=== PATIENT | female | born 1950 | race Caucasian/White ===

== ENCOUNTER 2023-08-29 11:50 | Emergency (ER) | payer MEDICARE, SELFPAY ==
[2023-08-29] VITALS (18 sets, daily range): BP systolic 100–136; BP diastolic 51–58; PULSE 66–99; RESP 16–36; TEMP 36.6–36.9; O2SAT 92–97; BMI 26.6
[2023-08-29 14:10] LABS: Add Manual Diff / Slide Review NO; Basophils Absolute Auto 0 /uL (0-100); Basophils Percent Auto 0.5 % (0-2); Eosinophils Absolute Auto 100 /uL (0-450); Eosinophils Percent Auto 1.1 % (2-4); Hematocrit 39.6 % (36-46); Hemoglobin 13.4 g/dL (12.0-16.0); Lymphocytes Absolute Auto 1300 /uL (1100-4500); Mean Corpuscular Hemoglobin 33.8 PG (26-34); Mean Corpuscular Volume 99.5 fL (80-100); Monocytes Absolute Auto 600 /uL (0-900); Monocytes Percent Auto 11.9 % (3-14); Neutrophils Absolute Auto 3100 /uL (1500-7000); Neutrophils Percent Auto 61.5 % (50-75); Platelet Count 224 X10^3/uL (150-400); Red Blood Cell Count 3.98 X10^6/uL (4.0-5.2); Red Cell Distribution Width 12.2 % (11.6-14.8)
[2023-08-29] MEDS: ONDANSETRON 4 MG/2 ML INJ IV (14:11)
[2023-08-29] MEDS: SODIUM CHLORIDE 0.9% 1,000 ML 1000 ML IV ×2 (14:11→17:30)
[2023-08-29 14:21] LABS: Alanine Aminotransferase 50 IU/L (<35); Albumin 4.2 g/dL (3.5-5.0); Albumin Globulin Ratio 1.2 (1.0-2.8); Alkaline Phosphatase 75 U/L (38-126); Aspartate Aminotransferase 46 IU/L (14-36); Bilirubin Total 0.7 mg/dL (0.2-1.3); Blood Urea Nitrogen 31 mg/dL (7-17); Calcium 9.3 mg/dL (8.4-10.2); Carbon Dioxide 24 mmol/L (22-32); Chloride 99 mmol/L (98-107); Estimated Glomerular Filt Rate 50 mL/min (>60); Globulin 3.4 g/dL (1.7-4.1); Glucose 85 mg/dL (80-110); HEMOLYSIS < 15 (0-50); Lipase 33 U/L (23-300); Potassium 3.3 mmol/L (3.4-5.1); Sodium 136 mmol/L (137-145); Total Protein 7.6 g/dL (6.3-8.2)
--- NOTE | 2023-08-29 17:04 | ED_ITS ---
HPI - General Adult General Chief complaint: Abdominal Pain Stated complaint: nausea, diarrhea Time Seen by Provider: 08/29/23 12:05 Source: patient Mode of arrival: Ambulatory History of Present Illness HPI narrative: 73-year-old woman with a history of reflux, hypertension and hyperlipidemia presents with continued nausea vomiting and diarrhea since 08/25. She was seen in an emergency department in [place] on 08/27. She is still having nausea and vomiting now with abdominal pain and dizziness. She does not describe fevers, no palpitations, chest pain headache Related Data Home Medications Medication Instructions Recorded Confirmed gabapentin 300 mg capsule 300 mg PO 4XD 08/29/23 08/29/23 hydrochlorothiazide 25 mg tablet 25 mg PO DAILY 08/29/23 08/29/23 losartan 50 mg tablet 50 mg PO DAILY 08/29/23 08/29/23 omeprazole 40 mg capsule,delayed 40 mg PO DAILY 08/29/23 08/29/23 release ondansetron 4 mg disintegrating 4 mg PO Q8H PRN nausea 08/29/23 08/29/23 tablet rosuvastatin 10 mg tablet 10 mg PO ONCE PM 08/29/23 08/29/23 Allergies Allergy/AdvReac Type Severity Reaction Status Date / Time amoxicillin Allergy Rash Verified 08/29/23 11:57 cefprozil Allergy Rash Verified 08/29/23 11:57 Review of Systems Review of Systems Narrative: Pertinent positive and negative findings as per HPI Patient History Social History Smoking Status: Never smoker Smoking Status: Never smoker alcohol intake frequency: a few times a month Substance Use Type: does not use Exam Initial Vital Signs Initial Vital Signs: Vital Signs Temperature 98 F 08/29/23 11:57 Pulse Rate 99 H 08/29/23 11:57 Respiratory Rate 20 08/29/23 11:57 Blood Pressure 136/57 L 08/29/23 11:57 Pulse Oximetry 97 08/29/23 11:57 Oxygen Delivery Method Room Air 08/29/23 11:57 General: Fatigued appearing appearing, in no acute distress. Able to give a complete and coherent history. HEENT: Moist mucous membranes, normal sclera with reactive pupils, Respiratory: Lungs are clear to auscultation, no wheezing no rales no rhonchi. Full and symmetrical air movement Cardiac: Regular rate and rhythm no murmurs no bruits Abdomen: Soft, hyperactive bowel tones, no rebound or guarding, diffuse abdominal pain Skin: Warm and dry, no rashes Neurologic: Grossly neurologically intact with no obvious asymmetries or abnormalities Extremities: No trauma, Psych: Cooperative, appropriate insight and affect Course Orders Ordered: ED Orders 08/29/23 14:00 Complete Blood Count AUTO DIFF Stat Comprehensive Metabolic Panel Stat Lipase Stat 08/29/23 14:23 EKG-12 Lead Stat 08/29/23 15:17 GI Panel (Film Array) Stat Ondansetron HCl (Ondansetron 4 Mg Odt) 4 mg PO NOW PRN PRN Reason: Nausea And Vomiting Ondansetron HCl (Ondansetron 4 Mg/2 Ml Inj) 4 mg IV NOW PRN PRN Reason: Nausea And Vomiting Last Admin: 08/29/23 14:11 Dose: 4 mg Documented By: TC Discontinued Medications Sodium Chloride (Normal Saline 0.9%) 1,000 mls @ 1,000 mls/hr IV BOLUS ONE Stop: 08/29/23 15:01 Last Infusion: 08/29/23 15:11 Dose: Infused Documented By: Admin: 08/29/23 14:11 Dose: 1,000 mls/hr Documented By: TC Vital Signs Vital signs: Vital Signs - 8 hr 08/29/23 11:57 08/29/23 12:53 08/29/23 13:00 Temperature 98 F Pulse Rate 99 H 86 77 Respiratory Rate 20 17 Blood Pressure 136/57 L Pulse Oximetry 97 95 93 Oxygen Delivery Method Room Air 08/29/23 13:00 08/29/23 13:30 08/29/23 14:00 Temperature Pulse Rate 76 75 Respiratory Rate 21 24 Blood Pressure 114/54 L 114/54 L Pulse Oximetry 94 96 Oxygen Delivery Method 08/29/23 14:30 08/29/23 14:44 08/29/23 14:44 Temperature Pulse Rate 72 73 Respiratory Rate 28 H 20 Blood Pressure 107/58 L Pulse Oximetry 95 97 Oxygen Delivery Method 08/29/23 15:00 08/29/23 15:00 08/29/23 15:30 Temperature Pulse Rate 73 75 Respiratory Rate 35 H 18 Blood Pressure 107/51 L Pulse Oximetry 96 96 Oxygen Delivery Method 08/29/23 16:00 Temperature Pulse Rate 74 Respiratory Rate 18 Blood Pressure 121/58 L Pulse Oximetry 94 Oxygen Delivery Method Room Air Medical Decision Making Lab Data 08/29/23 14:00 08/29/23 14:00 Labs: Lab Results 08/29/23 Range/Units 14:00 WBC 5.0 (4.5-11.0) X10^3/uL RBC 3.98 L (4.0-5.2) X10^6/uL Hgb 13.4 (12.0-16.0) g/dL Hct 39.6 (36-46) % MCV 99.5 (80-100) fL MCH 33.8 (26-34) PG MCHC 34.0 (30-36) % RDW 12.2 (11.6-14.8) % Plt Count 224 (150-400) X10^3/uL Neut % (Auto) 61.5 (50-75) % Lymph % (Auto) 25.0 (25-40) % [place] % (Auto) 11.9 (3-14) % Eos % (Auto) 1.1 L (2-4) % Baso % (Auto) 0.5 (0-2) % Neut # (Auto) 3100 (9165-5322) /uL Lymph # (Auto) 1300 (0052-6822) /uL [place] # (Auto) 600 (0-900) /uL Eos # (Auto) 100 (0-450) /uL Baso # (Auto) 0 (0-100) /uL Sodium 136 L (137-145) mmol/L Potassium 3.3 L (3.4-5.1) mmol/L Chloride 99 (98-107) mmol/L Carbon Dioxide 24 (22-32) mmol/L BUN 31 H (7-17) mg/dL Creatinine 1.15 H (0.52-1.04) mg/dL Estimated GFR 50 L (>60) mL/min BUN/Creatinine Ratio 27.0 H (6-22) Glucose 85 (80-110) mg/dL Calcium 9.3 (8.4-10.2) mg/dL Total Bilirubin 0.7 (0.2-1.3) mg/dL AST 46 H (14-36) IU/L ALT 50 H (<35) IU/L Alkaline Phosphatase 75 (38-126) U/L Total Protein 7.6 (6.3-8.2) g/dL Albumin 4.2 (3.5-5.0) g/dL Globulin 3.4 (1.7-4.1) g/dL Albumin/Globulin Ratio 1.2 (1.0-2.8) Lipase 33 (23-300) U/L MDM Narrative Medical decision making narrative: CC: 5 days of nausea vomiting now with increasing dizziness and abdominal pain Complicating co-morbidities: Hypertension, hyperlipidemia Data collected from: patient Social determinants of health that may influence the patients condition: Patient is visiting from out of town Differential considered: Viral gastroenteritis, bacterial gastroenteritis, Clostridium difficile, colitis Exam documented above, pertinent findings include: Mild diffuse abdominal pain without rebound or guarding. Patient appears fatigued with circles under her eyes but is otherwise well perfused. Lab Test results independently reviewed as above. Pertinent findings: Chemistries show potassium slightly low at 3.3, creatinine at 1.15, GFR is low at 50. She notes that her GFR is typically above 60. Elevated BUN at 31, AST and ALT are slightly elevated at 46 and 50 respectively. Patient does note that her potassium does run slightly low, she is on hydrochlorothiazide. Lipase is unremarkable CBC is reassuring Stool PCR is notable for Binh virus Imaging studies independently reviewed: CT scan shows no acute findings beyond nondilated fluid-filled loops of small bowel throughout the abdomen and pelvis is suspicious for a nonspecific enteritis or enterocolitis. Treatments: Zofran Discussion: 73-year-old woman with 4 days now of significant diarrhea, mild nausea no fevers. No blood in the stool. She is becoming more and more weak with increasing episodes of diarrhea. Labs are notable for mild hypokalemia likely secondary to both diarrhea and hydrochlorothiazide. He is had no evidence of acute renal failure. PCR testing is positive for asked her virus. Reviewed findings with the patient. No indication for antibiotics. We reviewed Zofran, she has prescription available from her prior your appointment. She currently is using Imodium which is appropriate. Anticipated course of recovery is discussed, questions are answered. At this point she does not have an acute surgical abdomen, no bowel obstruction no indication for additional imaging or hospitalization and she is safe for discharge Discharge Plan Departure Patient Disposition: Home Clinical Impression: Astrovirus enteritis, Acute hypokalemia Instructions: DI for Viral Gastroenteritis -- Adult Activity Restrictions/Additional Instructions: Thank you for coming in today I am sorry you are continuing to suffer with this diarrhea. Your stool testing shows that you have Binh virus, a virus that causes diarrhea. Most viruses are going to resolve within 5-7 days and you currently are on about day 5. Fortunately, your kidney function is doing reasonably well, your potassium is slightly low. I am going to suggest that you hold your hydrochlorothiazide until the diarrhea has completely resolved If you find that you are getting worse or develop any new symptoms, please feel free to return to the emergency department for further evaluation. Prescriptions: No Action losartan 50 mg tablet 50 mg PO DAILY omeprazole 40 mg capsule,delayed release(DR/EC) 40 mg PO DAILY gabapentin 300 mg capsule 300 mg PO 4XD hydrochlorothiazide 25 mg tablet 25 mg PO DAILY ondansetron 4 mg tablet,disintegrating 4 mg PO Q8H PRN (Reason: nausea) rosuvastatin 10 mg tablet 10 mg PO ONCE PM Referrals: Miscellaneous,Doctor, MD [Primary Care Provider] - Stand Alone Forms: Patient Portal/API
--- NOTE | 2023-08-29 17:14 | DI.CT.S_ITS ---
PROCEDURE: CT ABDOMEN PELVIS W CON INDICATIONS: abd pain, 1 week diarrhea TECHNIQUE: After the administration of intravenous contrast, axial sections acquired from the lung bases to the pubic symphysis. Coronal and sagittal reformats were performed. For radiation dose reduction, the following was used: automated exposure control, adjustment of mA and/or kV according to patient size. COMPARISON: None. FINDINGS: Image quality: Diagnostic. Lower Chest: Mild dependent atelectasis. Right lower lobe posterior 4 mm subpleural nodule does not require dedicated imaging follow-up given its size. ABDOMEN: Liver: No solid mass. Gallbladder: Status post cholecystectomy. Biliary ducts: Prominence of the extrahepatic bile ducts and central intrahepatic bile ducts is likely related to post cholecystectomy state. No radiopaque choledocholith. Pancreas: No ductal dilation. Spleen: Size is within normal limits. Adrenal Glands: No adrenal nodules. Kidneys and Ureters: No hydronephrosis. No solid mass. No complex renal cystic lesion which requires follow up. Stomach and Bowel: Scattered diverticula are seen in the colon without signs of acute diverticulitis. Fluid material is seen within the colon. No pericolonic fat stranding. Normal appendix. Nondilated fluid-filled loops of small bowel are seen throughout the abdomen, suspicious for a nonspecific enteritis. Stomach is nondistended. Peritoneum: No abnormal intraperitoneal fluid. No free air. Ventral Wall: Small fat containing periumbilical hernia. Abdominal Nodes: No retroperitoneal or mesenteric adenopathy by size criteria. Vessels: Aorta and inferior vena cava are normal in size. PELVIS: Pelvic Organs: Unremarkable. Bladder: Unremarkable. Pelvic Nodes: No enlarged lymph nodes. Miscellaneous: No inguinal hernias are seen. Bones: No aggressive osseous abnormality. Postsurgical changes at the right sacroiliac joint and throughout the lower thoracic and lumbar spine. IMPRESSION: 1. Nondilated fluid-filled loops of small bowel throughout the abdomen and pelvis is suspicious for a nonspecific enteritis or enterocolitis. 2. Colonic diverticulosis without signs of acute diverticulitis. Approved by: Michele Bender M.D. on 08/29/2023 at 18:03
[2023-08-29 17:27] LABS: Adenovirus F 40/41 Not Detected (Not Detect); Astrovirus Detected (Not Detect); Campylobacter Not Detected (Not Detect); Clostridium difficile toxin AB Not Detected (Not Detect); Cryptosporidium Not Detected (Not Detect); Cyclospora cayetanensis Not Detected (Not Detect); Entamoeba histolytica Not Detected (Not Detect); Enteroaggregative E.coli Not Detected (Not Detect); Enteropathogenic E.coli Not Detected (Not Detect); Enterotoxigenic E.coli It/st Not Detected (Not Detect); Giardia lamblia Not Detected (Not Detect); Norovirus GI/GII Not Detected (Not Detect); Plesiomonsa shigelloides Not Detected (Not Detect); Rotavirus A Not Detected (Not Detect); Salmonella Not Detected (Not Detect); Sapovirus Not Detected (Not Detect); Shiga-like toxin-prod E.coli Not Detected (Not Detect); Shigella/Enteroinvasive E.coli Not Detected (Not Detect); Vibrio Not Detected (Not Detect); Vibrio cholerae Not Detected (Not Detect); Yersinia enterocolitica Not Detected (Not Detect)
== END 2023-08-29 19:14 | disposition home or self-care (01) ==
PROVIDERS: Emergency Provider Emergency Medicine
DX: E87.6 Hypokalemia (principal); A08.32 Astrovirus enteritis
CPT/HCPCS: 36415; 74177; 80053; 83690; 85025; 87507; 93005; 96361; 96374; 99284; J2405; Q9967